=== PATIENT | male | born 1940 | race Caucasian/White ===

== ENCOUNTER 2022-06-22 16:01 | Observation (INO) ==
--- NOTE | 2022-06-22 16:20 | Emergency Department Note ---
Impression & Plan TIA (transient ischemic attack) ED Provider Note Provider: Kobi Yost MD DATE OF SERVICE: 06/22/2022 CHIEF COMPLAINT: Leg symptoms HISTORY OF PRESENT ILLNESS: Patient is a 82-year-old gentleman history of TIA received TNKase [facility] year at [facility] presenting today with onset around 1 PM of some dizziness difficulty with walking and some speech issues. Family and him report he had difficulty getting his words out. Had some issues with trying to use his right arm to eat earlier. No trauma reported. No significant headache or pain. Denies new numbness or tingling at this time. No headache or chest pain. No falls. No leg issues. REVIEW OF SYSTEMS: A total of 10 review of systems was obtained and negative except as stated above in the HPI. PAST MEDICAL HISTORY: As noted above MEDICATIONS: Reviewed home medications. SOCIAL HISTORY: PHYSICAL EXAM: GENERAL: alert and oriented in no acute distress on stretcher Head: normocephalic and atraumatic EYES: No injection, discharge or icterus. PERRL, EOMI. NECK: Trachea midline. Supple. ENT: Mucous membranes pink and moist. Pharynx without erythema or exudate. LUNGS: Airway patent. No retractions. Breath sounds clear with good air entry bilaterally. HEART: Regular rate and rhythm. No chest wall tenderness ABDOMEN: Soft and non-tender, without guarding or rebound. SKIN: Acyanotic, warm, dry, without rashes EXTREMITIES: Without swelling, tenderness or deformity NEUROLOGICAL: Initially some slight aphasia. This resolved on later reevaluation. No facial droop or slurred speech. Normal strength and tone in the extremities. Sensation to gross touch normal. Ambulatory. Tongue midline. No pronator drift. No leg drift. Some slight ataxia of both hands with [id number]. EK bpm normal sinus rhythm. No PVC or PAC. No acute ST segment elevation or depression with a QTC of 454. CONTINUOUS CARDIAC MONITORING: was ordered and showed a heart rate of 70s-80s bpm in normal sinus rhythm Patient's laboratory studies and imaging reviewed. Differential includes Infection, dehydration, metabolic abnormality, hypo/hyperglycemia, electrolyte disturbance, anemia, hypoxia, cardiac sources, intracerebral event, toxicologic, neurologic, as well as other pathologies. IMPRESSION/MEDICAL DECISION MAKING: Patient with complaint of some dizziness some aphasia and some according to right hand movements. Made stroke alert from triage. Evaluated quickly and CT. Discussed with him and family is on Eliquis anticoagulants thus tPA contraindicated. Symptoms have greatly improved by the time a reassessment of the room after imaging. CT imaging without evidence of any acute bleed or evidence of arterial occlusion on the CT angiograms. Patient blood work obtained. Symptoms are feeling improved. Somewhat focality of his to the right hand with the aphasia is somewhat concerning however for possible occult stroke or TIA. Blood work here with mild anemia no leukocytosis. No significant lectu re light abnormality. No evidence of liver dysfunction. EKG without significant abnormality. Doubt this is cardiac in nature. Discussed with patient and family at bedside. Unclear exactly what occurred but would recommend further evaluation given the transient nature of symptoms today with observation overnight. DIAGNOSIS: TIA DISPOSITION: Hospitalist will evaluate Patient was agreeable with this plan. Past Med/Surg History Medical History (Updated 06/22/22 @ 23:58 by Kobi Yost M.D.) Asthma CHF (congestive heart failure) HLD (hyperlipidemia) HTN (hypertension) KATY (obstructive sleep apnea) TIA (transient ischemic attack) Surgical History (Updated 06/22/22 @ 20:14 by AIDEE Corey) History of cholecystectomy Family History (Updated 06/22/22 @ 20:13 by AIDEE Corey) Grandfather (Maternal) Hypertension Diabetes Mother Hypertension Diabetes Colorectal cancer Stroke Father Hypertension Stroke Social History (Updated 06/22/22 @ 19:04 by AIDEE Corey) Smoking Status: Never smoker Hx Alcohol Use: No Hx Substance Use: No Preferred Language: Hungarian Communication Ability: Effective Color Specialist Required: No Beliefs That Will Affect Care: None marital status: Current Living Situation: Spouse current occupational status: retired current occupation: retired Feels Safe at Home: Yes Childhood Exposure to Second-Hand Smoke: No Assistive Devices: Glasses Allergies Allergies Allergy/AdvReac Type Severity Reaction Status Date / Time No Known Allergies Allergy Unverified 06/22/22 17:12 Home Meds Home Medications Medication Instructions Recorded Confirmed Lactobacillus acidophilus 10 10,000 mmu cells PO QAM 06/22/22 06/22/22 billion cell capsule (Probiotic) acetaminophen 325 mg tablet 650 mg PO QAM 06/22/22 06/22/22 (Tylenol) albuterol sulfate 90 mcg/actuation 2 puff inhalation QID PRN 06/22/22 06/22/22 aerosol inhaler (Ventolin HFA) Shortness Of Breath Or Wheezing amlodipine 2.5 mg tablet 2.5 mg PO QAM 06/22/22 06/22/22 apixaban 5 mg tablet (Eliquis) 5 mg PO BID 06/22/22 06/22/22 ascorbic acid (vitamin C) 1,000 mg 1 g PO QPM 06/22/22 06/22/22 tablet (Vitamin C) atorvastatin 80 mg tablet 80 mg PO HS 06/22/22 06/22/22 coQ10 (ubiquinol) 200 mg capsule 200 mg PO QAM 06/22/22 06/22/22 cyanocobalamin (vitamin B-12) 1,000 mcg PO DAILY 06/22/22 06/22/22 1,000 mcg tablet (Vitamin B-12) diphenhydramine 25 1 tab PO HS PRN Sleep 06/22/22 06/22/22 mg-acetaminophen 500 mg tablet (Tylenol PM Extra Strength) doxazosin 4 mg tablet 4 mg PO HS 06/22/22 06/22/22 finasteride 5 mg tablet 5 mg PO QPM 06/22/22 06/22/22 loratadine 10 mg tablet 10 mg PO HS 06/22/22 06/22/22 potassium chloride 10 mEq 10 meq PO QPM 06/22/22 06/22/22 capsule,extended release quinapril 40 mg tablet 40 mg PO QAM 06/22/22 06/22/22 saw palmetto 450 mg capsule 450 mg PO QAM 06/22/22 06/22/22 simethicone 80 mg chewable tablet 80 mg PO AMPM 06/22/22 06/22/22 (Gas Relief (simethicone)) torsemide 10 mg tablet 10 mg PO QAM 06/22/22 06/22/22 Results & Data (ED) Vital Signs Vital Signs - 24 hr 06/22/22 16:04 06/22/22 16:33 06/22/22 16:33 Temperature 36.8 C Temperature Source Temporal Artery Scan Pulse Rate 76 Pulse Rate [Apical] Respiratory Rate 18 Respiratory Effort / Characteristics Respiratory Depth Blood Pressure 158/90 H Blood Pressure [Right Arm] Blood Pressure Mean 112 Blood Pressure Mean [Right Arm] Blood Pressure Position [Right Arm] Pulse Oximetry 95 95 Oxygen Delivery Method Room Air Room Air Room Air Sepsis Recent Fever Within 48 Hours No Sepsis New/Unexplained Change in Mental Status No Sepsis Action Taken by Nursing No Action Required 06/22/22 16:34 06/22/22 16:34 06/22/22 18:01 Temperature Temperature Source Pulse Rate Pulse Rate [Apical] 73 69 Respiratory Rate 16 18 Respiratory Effort / Characteristics Non-Labored Respiratory Depth Normal Blood Pressure Blood Pressure [Right Arm] 144/79 H 156/91 H Blood Pressure Mean Blood Pressure Mean [Right Arm] 100 112 Blood Pressure Position [Right Arm] Lying Pulse Oximetry 96 95 93 Oxygen Delivery Method Room Air Room Air Room Air Sepsis Recent Fever Within 48 Hours Sepsis New/Unexplained Change in Mental Status Sepsis Action Taken by Nursing Laboratory Data Result diagrams: 06/22/22 16:27 06/22/22 16:27 Lab Results 06/22/22 06/22/22 06/22/22 Range/Units 16:24 16:27 16:27 WBC 6.59 (4.8-10.8) K/ul RBC 3.83 L (4.63-6.08) M/uL Hgb 11.8 L (14.0-18.0) g/dl POC Hgb (14.0-18.0) g/dl Hct 34.1 L (40.1-51.0) % POC Hct (42-52) % MCV 89.0 (80.0-100.0) fL MCH 30.8 (25.0-34.0) pg MCHC 34.6 (32.0-36.0) g/dL RDW Std Deviation 52.3 H (36.4-46.3) fL RDW Coeff of Teddy 16.0 H (11.5-14.5) % Plt Count 180 (130-400) K/uL MPV 10.6 (9.4-12.4) fL PT 11.4 (9.0-12.0) Seconds INR 1.1 (0.9-1.1) APTT 27.6 (21.0-31.0) Seconds PTT Ratio 1.0 POC Sodium (135-144) mmol/L Sodium (136-145) mmol/L POC Potassium (3.3-5.0) mmol/L Potassium (3.5-5.1) mmol/L POC Chloride (101-112) mmol/L Chloride (98-107) mmol/L Carbon Dioxide (21-32) mmol/L POC Total CO2 (24-31) mmol/L Anion Gap (3-11) POC Anion Gap (16-25) mmol/L POC BUN (7-18) mg/dl BUN (6-23) mg/dl Creatinine (0.6-1.4) mg/dl POC Creatinine (0.6-1.3) mg/dl Est Cr Clr Drug Dosing Est GFR ( Amer) ml/min Est GFR (Non-Af Amer) ml/min BUN/Creatinine Ratio (10-20) Glucose (70-99(Fasting)) mg/dl POC Glucose 115 H (70-99) mg/dl POC Glucose (other) (70-99) mg/dl Calcium (8.5-10.1) mg/dl POC Ioniz Calcium Zina (1.12-1.32) mmol/l Magnesium (1.7-2.4) mg/dl Total Bilirubin (0.2-1.0) mg/dl AST (13-39) U/L ALT (7-52) U/L Alkaline Phosphatase (34-104) U/L Troponin I High Sens (0-20) pg/ml Total Protein (6.0-8.3) gm/dl Albumin (3.4-5.0) gm/dl Globulin (2.5-4.0) gm/dl Albumin/Globulin Ratio (0.9-2) SARS-CoV-2, RNA, NAAT (NEGATIVE) 06/22/22 06/22/22 06/22/22 Range/Units 16:27 16:27 16:29 WBC (4.8-10.8) K/ul RBC (4.63-6.08) M/uL Hgb (14.0-18.0) g/dl POC Hgb 10.9 L (14.0-18.0) g/dl Hct (40.1-51.0) % POC Hct 32 L (42-52) % MCV (80.0-100.0) fL MCH (25.0-34.0) pg MCHC (32.0-36.0) g/dL RDW Std Deviation (36.4-46.3) fL RDW Coeff of Teddy (11.5-14.5) % Plt Count (130-400) K/uL MPV (9.4-12.4) fL PT (9.0-12.0) Seconds INR (0.9-1.1) APTT (21.0-31.0) Seconds PTT Ratio POC Sodium 141 (135-144) mmol/L Sodium 139 (136-145) mmol/L POC Potassium 3.5 (3.3-5.0) mmol/L Potassium 3.6 (3.5-5.1) mmol/L POC Chloride 104 (101-112) mmol/L Chloride 107 (98-107) mmol/L Carbon Dioxide 27 (21-32) mmol/L POC Total CO2 24 (24-31) mmol/L Anion Gap 5 (3-11) POC Anion Gap 16.0 (16-25) mmol/L POC BUN 18 (7-18) mg/dl BUN 17 (6-23) mg/dl Creatinine 0.95 (0.6-1.4) mg/dl POC Creatinine 0.9 (0.6-1.3) mg/dl Est Cr Clr Drug Dosing Not Reportable Est GFR ( Amer) 86.7 ml/min Est GFR (Non-Af Amer) 74.8 ml/min BUN/Creatinine Ratio 17.9 (10-20) Glucose 108 H (70-99(Fasting)) mg/dl POC Glucose (70-99) mg/dl POC Glucose (other) 109 H (70-99) mg/dl Calcium 8.3 L (8.5-10.1) mg/dl POC Ioniz Calcium Zina 1.11 L (1.12-1.32) mmol/l Magnesium 2.1 (1.7-2.4) mg/dl Total Bilirubin 0.5 (0.2-1.0) mg/dl AST 23 (13-39) U/L ALT 28 (7-52) U/L Alkaline Phosphatase 78 (34-104) U/L Troponin I High Sens 4.0 (0-20) pg/ml Total Protein 5.7 L (6.0-8.3) gm/dl Albumin 3.8 (3.4-5.0) gm/dl Globulin 1.9 L (2.5-4.0) gm/dl Albumin/Globulin Ratio 2.0 (0.9-2) SARS-CoV-2, RNA, NAAT (NEGATIVE) 06/22/22 Range/Units 17:21 WBC (4.8-10.8) K/ul RBC (4.63-6.08) M/uL Hgb (14.0-18.0) g/dl POC Hgb (14.0-18.0) g/dl Hct (40.1-51.0) % POC Hct (42-52) % MCV (80.0-100.0) fL MCH (25.0-34.0) pg MCHC (32.0-36.0) g/dL RDW Std Deviation (36.4-46.3) fL RDW Coeff of Teddy (11.5-14.5) % Plt Count (130-400) K/uL MPV (9.4-12.4) fL PT (9.0-12.0) Seconds INR (0.9-1.1) APTT (21.0-31.0) Seconds PTT Ratio POC Sodium (135-144) mmol/L Sodium (136-145) mmol/L POC Potassium (3.3-5.0) mmol/L Potassium (3.5-5.1) mmol/L POC Chloride (101-112) mmol/L Chloride (98-107) mmol/L Carbon Dioxide (21-32) mmol/L POC Total CO2 (24-31) mmol/L Anion Gap (3-11) POC Anion Gap (16-25) mmol/L POC BUN (7-18) mg/dl BUN (6-23) mg/dl Creatinine (0.6-1.4) mg/dl POC Creatinine (0.6-1.3) mg/dl Est Cr Clr Drug Dosing Est GFR ( Amer) ml/min Est GFR (Non-Af Amer) ml/min BUN/Creatinine Ratio (10-20) Glucose (70-99(Fasting)) mg/dl POC Glucose (70-99) mg/dl POC Glucose (other) (70-99) mg/dl Calcium (8.5-10.1) mg/dl POC Ioniz Calcium Zina (1.12-1.32) mmol/l Magnesium (1.7-2.4) mg/dl Total Bilirubin (0.2-1.0) mg/dl AST (13-39) U/L ALT (7-52) U/L Alkaline Phosphatase (34-104) U/L Troponin I High Sens (0-20) pg/ml Total Protein (6.0-8.3) gm/dl Albumin (3.4-5.0) gm/dl Globulin (2.5-4.0) gm/dl Albumin/Globulin Ratio (0.9-2) SARS-CoV-2, RNA, NAAT NEGATIVE (NEGATIVE) Administered Medications Apixaban (Apixaban 5 Mg Tablet) 5 mg PO BID MADDY Stop: 07/22/22 20:59 Last Admin: 06/22/22 22:21 Dose: 5 mg Documented By: JANIE Ascorbic Acid (Ascorbic Acid 500 Mg Tab) 1,000 mg PO QPM MADDY Stop: 07/22/22 20:59 Last Admin: 06/22/22 22:20 Dose: 1,000 mg Documented By: JANIE Atorvastatin Calcium (Atorvastatin 40 Mg Tab) 80 mg PO HS MADDY Stop: 07/22/22 20:59 Last Admin: 06/22/22 22:20 Dose: 80 mg Documented By: JANIE Doxazosin Mesylate (Doxazosin Mesylate 4 Mg Tab) 4 mg PO HS MADDY Stop: 07/22/22 20:59 Last Admin: 06/22/22 22:21 Dose: 4 mg Documented By: JANIE Finasteride (Finasteride 5 Mg Tab) 5 mg PO QPM MADDY Stop: 07/22/22 20:59 Last Admin: 06/22/22 22:22 Dose: 5 mg Documented By: JANIE Loratadine (Loratadine 10 Mg Tab) 10 mg PO HS MADDY Stop: 07/22/22 20:59 Last Admin: 06/22/22 22:22 Dose: 10 mg Documented By: JANIE Potassium Chloride (Potassium Chloride 10 Meq Tabcr) 10 meq PO 1700 MADDY Stop: 07/22/22 20:59 Last Admin: 06/22/22 22:22 Dose: 10 meq Documented By: JANIE Simethicone (Simethicone 80 Mg Chew) 80 mg PO BID MADDY Stop: 07/22/22 20:59 Last Admin: 06/22/22 22:20 Dose: 80 mg Documented By: JANIE Discontinued Medications Clopidogrel Bisulfate (Clopidogrel Bisulfate 75 Mg Tab) 75 mg PO NOW ONE Stop: 10/16/22 18:56 Last Admin: 06/22/22 19:58 Dose: 75 mg Documented By: ELENA Gadobutrol (Gadobutrol 65ml Vial) 8 ml IV ONCE ONE Stop: 06/22/22 23:32 Last Admin: 06/22/22 23:32 Dose: 8 ml Documented By: ARASH Ioversol (Optiray 320 500ml) 107 ml IV ONCE ONE Stop: 06/22/22 16:33 Last Admin: 06/22/22 16:32 Dose: 107 ml Documented By: ANNEMARIE Imaging Data Radiologist's Impression: Head CT 06/22/22 16:08 CT angio neck with con, CT angio head w con, CT head/brain wo con CLINICAL HISTORY: dizzy, aphasia TECHNIQUE: Automated Data Collection CT angiography of the head and neck was performed following intravenous administration of iodinated contrast. Coronal and sagittal MIPS were obtained from the axial data set and were submitted for review. Automated dose lowering techniques and/or adjustment according to patient size were utilized for this examination. All measurements were calculated based on NASCET criteria. CT DOSE: 627.54 mGy.cm (accession [id number]), 691.05 mGy.cm (accession [id number]) Comparison: None available at the time of this dictation. FINDINGS: CT head: There is no acute intracranial hemorrhage or evidence of acute territorial infarction. No shift of the midline structures, mass effect, or extra-axial abnormalities are shown. 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 Lungs and soft tissues are unremarkable. CTA Neck: The left common carotid artery shares common origin with the innominate artery. There is no significant atherosclerotic plaque in the aortic arch or the origins of the innominate, left common carotid, and left subclavian arteries. The common carotid, external carotid, cervical segments of the internal carotid arteries, and the cervical segments of the vertebral arteries are patent without hemodynamically significant stenosis. The vertebral arteries are codominant. CTA Head: The anterior and posterior cerebral circulations are patent. No hemodynamically significant stenosis, aneurysm, dissection, or arteriovenous malformation is shown. Atherosclerotic disease is noted. IMPRESSION: 1. No acute intracranial hemorrhage, evidence of acute territorial infarction, or other acute intracranial disease process. 2. No occlusion, hemodynamically significant stenosis, or dissection in the major cervical arteries. 3. No occlusion, hemodynamically significant stenosis, aneurysm, dissection, or arteriovenous malformation in the major intracranial arteries. Assessment of stenosis of the internal carotid arteries is based on NASCET criteria. ACT 112: Negative or not required by law. Electronically signed by: Derrick Minor M.D. 06/22/2022 4:52 PM Head CTA 06/22/22 16:14 CT angio neck with con, CT angio head w con, CT head/brain wo con CLINICAL HISTORY: dizzy, aphasia TECHNIQUE: Automated Data Collection CT angiography of the head and neck was performed following intravenous administration of iodinated contrast. Coronal and sagittal MIPS were obtained from the axial data set and were submitted for review. Automated dose lowering techniques and/or adjustment according to patient size were utilized for this examination. All measurements were calculated based on NASCET criteria. CT DOSE: 627.54 mGy.cm (accession [id number]), 691.05 mGy.cm (accession [id number]) Comparison: None available at the time of this dictation. FINDINGS: CT head: There is no acute intracranial hemorrhage or evidence of acute territorial infarction. No shift of the midline structures, mass effect, or extra-axial abnormalities are shown. 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 Lungs and soft tissues are unremarkable. CTA Neck: The left common carotid artery shares common origin with the inn ominate artery. There is no significant atherosclerotic plaque in the aortic arch or the origins of the innominate, left common carotid, and left subclavian arteries. The common carotid, external carotid, cervical segments of the internal carotid arteries, and the cervical segments of the vertebral arteries are patent without hemodynamically significant stenosis. The vertebral arteries are codominant. CTA Head: The anterior and posterior cerebral circulations are patent. No hemodynamically significant stenosis, aneurysm, dissection, or arteriovenous malformation is shown. Atherosclerotic disease is noted. IMPRESSION: 1. No acute intracranial hemorrhage, evidence of acute territorial infarction, or other acute intracranial disease process. 2. No occlusion, hemodynamically significant stenosis, or dissection in the major cervical arteries. 3. No occlusion, hemodynamically significant stenosis, aneurysm, dissection, or arteriovenous malformation in the major intracranial arteries. Assessment of stenosis of the internal carotid arteries is based on NASCET criteria. ACT 112: Negative or not required by law. Electronically signed by: Derrick Minor M.D. 06/22/2022 4:52 PM Neck CTA 06/22/22 16:14 CT angio neck with con, CT angio head w con, CT head/brain wo con CLINICAL HISTORY: dizzy, aphasia TECHNIQUE: Automated Data Collection CT angiography of the head and neck was performed following intravenous administration of iodinated contrast. Coronal and sagittal MIPS were obtained from the axial data set and were submitted for review. Automated dose lowering techniques and/or adjustment according to patient size were utilized for this examination. All measurements were calculated based on NASCET criteria. CT DOSE: 627.54 mGy.cm (accession [id number]), 691.05 mGy.cm (accession [id number]) Comparison: None available at the time of this dictation. FINDINGS: CT head: There is no acute intracranial hemorrhage or evidence of acute territor ial infarction. No shift of the midline structures, mass effect, or extra-axial abnormalities are shown. 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 Lungs and soft tissues are unremarkable. CTA Neck: The left common carotid artery shares common origin with the innominate artery. There is no significant atherosclerotic plaque in the aortic arch or the origins of the innominate, left common carotid, and left subclavian arteries. The common carotid, external carotid, cervical segments of the internal carotid arteries, and the cervical segments of the vertebral arteries are patent without hemodynamically significant stenosis. The vertebral arteries are codominant. CTA Head: The anterior and posterior cerebral circulations are patent. No hemodynamically significant stenosis, aneurysm, dissection, or arteriovenous malformation is shown. Atherosclerotic disease is noted. IMPRESSION: 1. No acute intracranial hemorrhage, evidence of acute territorial infarction, or other acute intracranial disease process. 2. No occlusion, hemodynamically significant stenosis, or dissection in the major cervical arteries. 3. No occlusion, hemodynamically significant stenosis, aneurysm, dissection, or arteriovenous malformation in the major intracranial arteries. Assessment of stenosis of the internal carotid arteries is based on NASCET criteria. ACT 112: Negative or not required by law. Electronically signed by: Derrick Minor M.D. 06/22/2022 4:52 PM Chest X-Ray 06/22/22 17:08 XR chest 1V portable CLINICAL HISTORY: dizzy TECHNIQUE: Single frontal radiograph of the chest was obtained. Comparison: None available at the time of this dictation. FINDINGS: No lines and tubes are seen. Cardiac silhouette is top normal in size. The lungs are clear. No evidence of pleural effusion or pneumothorax. IMPRESSION: No acute chest disease. ACT 112: Negative or not required by law. Electronically signed by: Derrick Minor M.D. 06/22/2022 5:25 PM Discharge Plan Visit Data Chief Complaint: Neuro Symptoms/Deficit Stated Complaint: TROUBLE WALKING AND TALKING, DIZZY, WEAKNESS ED Provider: Kobi Yost Discharge Problem: TIA (transient ischemic attack) Patient Disposition: Admitted As Inpatient Discharge Instructions Interventions: ED Discharge Assessment Last Done: 06/22/22 20:55
[2022-06-22] MEDS ORDERED: OPTIRAY 320 500ml IV ONE (16:32)
[2022-06-22 16:41] LABS: Hematocrit (blood only) 34.1 % (40.1-51.0); Hemoglobin 11.8 g/dl (14.0-18.0); Mean Corpuscular Hemoglobin 30.8 pg (25.0-34.0); Mean Corpuscular Hgb Conc 34.6 g/dL (32.0-36.0); Mean Platelet Volume 10.6 fL (9.4-12.4); Platelet Count 180 K/uL (130-400); RDW Standard Deviation 52.3 fL (36.4-46.3); Red Blood Count 3.83 M/uL (4.63-6.08); White Blood Count 6.59 K/ul (4.8-10.8)
[2022-06-22 16:43] LABS: iSTAT Creatinine 0.9 mg/dl (0.6-1.3); iSTAT Hemoglobin 10.9 g/dl (14.0-18.0); iSTAT Ionized Calcium 1.11 mmol/l (1.12-1.32); iSTAT Potassium 3.5 mmol/L (3.3-5.0)
--- NOTE | 2022-06-22 16:55 | CT Scan Report ---
CT angio neck with con, CT angio head w con, CT head/brain wo con CLINICAL HISTORY: dizzy, aphasia TECHNIQUE: Automated Data Collection CT angiography of the head and neck was performed following intr avenous administration of iodinated contrast. Coronal and sagittal MIPS were obtained from the axial data set and were submitted for review. Automated dose lowering techniques and/or adjustment accordi ng to patient size were utilized for this examination. All measurements were calculated based on NASC ET criteria. CT DOSE: 627.54 mGy.cm (accession [id number]), 691.05 mGy.cm (accession [id number]) Comparison: None available at the time of this dictation. FINDINGS: CT head: There is no acute intracranial hemorrhage or evidence of acute territorial infarction. No sh ift of the midline structures, mass effect, or extra-axial abnormalities are shown. Likely old infarc t in the periventricular white matter on the right. Lungs and soft tissues are unremarkable. CTA Neck: The left common carotid artery shares common origin with the innominate artery. There is n o significant atherosclerotic plaque in the aortic arch or the origins of the innominate, left common carotid, and left subclavian arteries. The common carotid, external carotid, cervical segments of the internal carotid arteries, and the cervical segments of the vertebral arteries are patent without hemodynamically significant stenosis. The vertebral arteries are codominant. CTA Head: The anterior and posterior cerebral circulations are patent. No hemodynamically significan t stenosis, aneurysm, dissection, or arteriovenous malformation is shown. Atherosclerotic disease is noted. IMPRESSION: 1. No acute intracranial hemorrhage, evidence of acute territorial infarction, or other acute intrac ranial disease process. 2. No occlusion, hemodynamically significant stenosis, or dissection in the major cervical arteries. 3. No occlusion, hemodynamically significant stenosis, aneurysm, dissection, or arteriovenous malfor mation in the major intracranial arteries. Assessment of stenosis of the internal carotid arteries is based on NASCET criteria. ACT 112: Negative or not required by law. Electronically signed by: Derrick Minor M.D. 06/22/2022 4:52 PM
[2022-06-22 16:57] LABS: INR 1.1 (0.9-1.1); Partial Thromboplastin Time 27.6 Seconds (21.0-31.0); Prothrombin Time 11.4 Seconds (9.0-12.0)
[2022-06-22 16:59] LABS: Alanine Aminotransferase 28 U/L (7-52); Albumin Level 3.8 gm/dl (3.4-5.0); Alkaline Phosphatase 78 U/L (34-104); Anion Gap 5 (3-11); Aspartate Aminotransferase 23 U/L (13-39); BUN Creatinine Ratio 17.9 (10-20); Bilirubin,Total 0.5 mg/dl (0.2-1.0); Blood Urea Nitrogen 17 mg/dl (6-23); Calcium 8.3 mg/dl (8.5-10.1); Carbon Dioxide 27 mmol/L (21-32); Chloride 107 mmol/L (98-107); Est GFR (African American) 86.7 ml/min; Est GFR (Non-African American) 74.8 ml/min; Globulin 1.9 gm/dl (2.5-4.0); Glucose 108 mg/dl (70-99(Fasting)); Magnesium 2.1 mg/dl (1.7-2.4); Potassium 3.6 mmol/L (3.5-5.1); Sodium 139 mmol/L (136-145); Total Protein 5.7 gm/dl (6.0-8.3)
--- NOTE | 2022-06-22 17:26 | XRay Report ---
XR chest 1V portable CLINICAL HISTORY: dizzy TECHNIQUE: Single frontal radiograph of the chest was obtained. Comparison: None available at the time of this dictation. FINDINGS: No lines and tubes are seen. Cardiac silhouette is top normal in size. The lungs are clear. No eviden ce of pleural effusion or pneumothorax. IMPRESSION: No acute chest disease. ACT 112: Negative or not required by law. Electronically signed by: Derrick Minor M.D. 06/22/2022 5:25 PM
--- NOTE | 2022-06-22 18:23 | History & Physical Report ---
Date of Service June 22, 2022 Assessment & Plan (1) TIA (transient ischemic attack): (2) HTN (hypertension): (3) HLD (hyperlipidemia): (4) CHF (congestive heart failure): (5) Asthma: (6) KATY (obstructive sleep apnea): Plan 82-year-old M that presented to the hospital with dizziness, dysarthria, difficulty with the right hand fine motor skills. Some slurred words but did not report aphasia. Head CT was obtained and negative and his symptoms seem to have resolved. PMH includes: HLD, atrial fibrillation, TIA, HTN, CHF. He primarily is followed in the [facility] system with Dr. Rice. MRI and ECHO ordered. Patient will be started on standard dosing antiplatelet therapy and will await further instruction from neurology. DNR/DNI. TIA: Dizziness and dysarthria with difficulty with right hand fine motor movement on admission Head CT negative and symptoms have resolved No stroke alert teleconference held due to time of symptom onset and patient on Eliquis TIA symptoms in February 2021 status post TNKase administration and Pia. Patient on high-dose antilipid agent; continue NIH: 1 as he still has slight dysarthria Stroke order set without thrombolytics placed; neuro consult placed Will start antiplatelet therapy with Plavix 75 mg once and allow neurology input ok for meds if clears dysphagia screen. PT/OT. Will obtain brain MRI CHF: HTN: Normotensive in the ED Takes amlodipine and doxazosin; continue Will check BNP HLD: Takes high-dose atorvastatin 80 mg Check lipid panel in a.m. and trend as outpatient Asthma: KATY: Albuterol for short acting relief PRN; continue Uses CPAP QHS; will use CPAP here. His is one hour away as he is out of town. Disposition: PCP: Dr. Rice with [facility] Code: DNR/DNI Point of Contact: son, Rodrigo I personally was able to review all current laboratory work and diagnostic images obtained in the ED. Additionally, I was able to review the patients past medication reconciliation and history with direct visualization in the patients chart. This patient was seen in collaboration with Dr. [place]. History of Present Illness Chief Complaint: stroke like symptoms Primary Care Provider: Dr. Rice with [facility] is an 82-year-old male that presented to the hospital today with his Paula and his son Rodrigo after experiencing dizziness, dysarthria, difficulty with the right hand fine motor skills at [facility]. He was in [facility] this morning when his symptoms began just before 1 PM. He is visiting his son from the [place] area. His [id number] is a nurse here at [facility] and she was able to take his blood pressure which was normal at the time. He reports that he was dizzy getting out of his car and while at lunch he picked up to [place] at 1 time and had a hard time putting down one of the [place]. He felt that he had some slurred words but did not report aphasia. A head CT was obtained and negative and his symptoms have seemed to resolve since presenting to the ED. The patient has a history of TIAs and received TN kinase last year and was put on Eliquis for chronic management thereafter. Additional past medical history includes atrial fibrillation, hyperlipidemia, hypertension, KATY (CPAP at home) CHF. He primarily is followed in the [facility] system with Dr. Rice. He does have a home builder that he sees outpatient. Mr. Freire denies current dizziness, chest pain, palpitations, visual changes, shortness of breath, cough, nausea, vomiting, diarrhea, recent falls or trauma, or aphasia. On examination, the patient is awake alert oriented x4 and is able to hold a meaningful conversation with myself, his , and his son. He is answering all questions appropriately and appears to be back to baseline from a speech perspective per himself and his family. The patient does report a trace headache and generalized weakness from the events that transpired today. Lengthy conversation held with patient and his family and they were receptive to further diagnostic imaging including an MRI and an echocardiogram. Patient will be started on standard dosing antiplatelet therapy and will await further instruction from neurology. Patient will be admitted to the [facility] service for further evaluation and management. Please see A/P for further details. Allergies Allergy/AdvReac Type Severity Reaction Status Date / Time No Known Allergies Allergy Unverified 06/22/22 17:12 Home Medications Medication Instructions Recorded Confirmed Type Lactobacillus acidophilus 10 10,000 mmu cells PO QAM 06/22/22 06/22/22 History billion cell capsule (Probiotic) acetaminophen 325 mg tablet 650 mg PO QAM 06/22/22 06/22/22 History (Tylenol) albuterol sulfate 90 mcg/actuation 2 puff inhalation QID PRN 06/22/22 06/22/22 History aerosol inhaler (Ventolin HFA) Shortness Of Breath Or Wheezing amlodipine 2.5 mg tablet 2.5 mg PO QAM 06/22/22 06/22/22 History apixaban 5 mg tablet (Eliquis) 5 mg PO BID 06/22/22 06/22/22 History ascorbic acid (vitamin C) 1,000 mg 1 g PO QPM 06/22/22 06/22/22 History tablet (Vitamin C) atorvastatin 80 mg tablet 80 mg PO HS 06/22/22 06/22/22 History coQ10 (ubiquinol) 200 mg capsule 200 mg PO QAM 06/22/22 06/22/22 History cyanocobalamin (vitamin B-12) 1,000 mcg PO DAILY 06/22/22 06/22/22 History 1,000 mcg tablet (Vitamin B-12) diphenhydramine 25 1 tab PO HS PRN Sleep 06/22/22 06/22/22 History mg-acetaminophen 500 mg tablet (Tylenol PM Extra Strength) doxazosin 4 mg tablet 4 mg PO HS 06/22/22 06/22/22 History finasteride 5 mg tablet 5 mg PO QPM 06/22/22 06/22/22 History loratadine 10 mg tablet 10 mg PO HS 06/22/22 06/22/22 History potassium chloride 10 mEq 10 meq PO QPM 06/22/22 06/22/22 History capsule,extended release quinapril 40 mg tablet 40 mg PO QAM 06/22/22 06/22/22 History saw palmetto 450 mg capsule 450 mg PO QAM 06/22/22 06/22/22 History simethicone 80 mg chewable tablet 80 mg PO AMPM 06/22/22 06/22/22 History (Gas Relief (simethicone)) torsemide 10 mg tablet 10 mg PO QAM 06/22/22 06/22/22 History Past Med/Surg History Medical History (Updated 06/22/22 @ 20:11 by AIDEE Corey) Asthma CHF (congestive heart failure) HLD (hyperlipidemia) HTN (hypertension) KATY (obstructive sleep apnea) TIA (transient ischemic attack) Surgical History (Updated 06/22/22 @ 20:14 by AIDEE Corey) History of cholecystectomy Family History (Updated 06/22/22 @ 20:13 by AIDEE Corey) Grandfather (Maternal) Hypertension Diabetes Mother Hypertension Diabetes Colorectal cancer Stroke Father Hypertension Stroke Social History (Updated 06/22/22 @ 19:04 by AIDEE Corey) Smoking Status: Never smoker Hx Alcohol Use: No Hx Substance Use: No Preferred Language: Guamanian Communication Ability: Effective marital status: Current Living Situation: Spouse current occupational status: retired current occupation: retired Feels Safe at Home: Yes Childhood Exposure to Second-Hand Smoke: No Review of Systems Review of Systems: Neuro: (-) Falls, trauma, slurred speech HEENT: (-) HOBBS, dizziness, dysphagia, visual or auditory changes CV: (-) CP, palpitations, swelling Resp: (-) SOB GI: (-) appetite changes, N/V/D, bowel changes : (-) urinary changes Skin: (-) rashes Psych: (-) anxiety, depression Physical Exam Physical Exam: Neuro: AAOx4, PERRLA, no aphagia, memory changes, CNII-XII grossly intact (-) aphagia HEENT: head normocephalic, moist mucus membranes CV: S1/S2, (-) M/G/R, (-) edema, cap refill < 3 seconds Resp: Lungs CTA in all edwards. On RA GI: Abdomen S/NT/ND, Ax4 bowel sounds, (-) CVA tenderness Musculoskeletal: 5/5 B/L UE strength, 5/5 B/L LE strength. No gait disturbance Skin: (-) rashes , (-) erythema. Psych: euthymic mood Results & Data Results & Data ([facility]) Vital Signs (Past 12 Hours) Vital Signs Temp Pulse Pulse Resp BP BP Pulse Ox 06/22/22 18:01 69 18 156/91 H 93 06/22/22 16:34 73 16 144/79 H 95 06/22/22 16:34 96 06/22/22 16:33 06/22/22 16:33 95 06/22/22 16:04 36.8 C 76 18 158/90 H 95 O2 Del Method 06/22/22 18:01 Room Air 06/22/22 16:34 Room Air 06/22/22 16:34 Room Air 06/22/22 16:33 Room Air 06/22/22 16:33 Room Air 06/22/22 16:04 Room Air Laboratory Results Short CBC 06/22/22 Range/Units 16:27 WBC 6.59 (4.8-10.8) K/ul Hgb 11.8 L (14.0-18.0) g/dl Hct 34.1 L (40.1-51.0) % Plt Count 180 (130-400) K/uL BMP 06/22/22 16:27 Sodium 139 Potassium 3.6 Chloride 107 Carbon Dioxide 27 BUN 17 Creatinine 0.95 Glucose 108 H Calcium 8.3 L Liver Function 06/22/22 Range/Units 16:27 Total Bilirubin 0.5 (0.2-1.0) mg/dl AST 23 (13-39) U/L ALT 28 (7-52) U/L Alkaline Phosphatase 78 (34-104) U/L Albumin 3.8 (3.4-5.0) gm/dl Diagnostic Findings Head CT 06/22/22 16:08 CT angio neck with con, CT angio head w con, CT head/brain wo con CLINICAL HISTORY: dizzy, aphasia TECHNIQUE: Automated Data Collection CT angiography of the head and neck was performed following intravenous administration of iodinated contrast. Coronal and sagittal MIPS were obtained from the axial data set and were submitted for review. Automated dose lowering techniques and/or adjustment according to patient size were utilized for this examination. All measurements were calculated based on NASCET criteria. CT DOSE: 627.54 mGy.cm (accession [id number]), 691.05 mGy.cm (accession [id number]) Comparison: None available at the time of this dictation. FINDINGS: CT head: There is no acute intracranial hemorrhage or evidence of acute te rritorial infarction. No shift of the midline structures, mass effect, or extra- axial abnormalities are shown. 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 Lungs and soft tissues are unremarkable. CTA Neck: The left common carotid artery shares common origin with the innominate artery. There is no significant atherosclerotic plaque in the aortic arch or the origins of the innominate, left common carotid, and left subclavian arteries. The common carotid, external carotid, cervical segments of the internal carotid arteries, and the cervical segments of the vertebral arteries are patent without hemodynamically significant stenosis. The vertebral arteries are codominant. CTA Head: The anterior and posterior cerebral circulations are patent. No hemodynamically significant stenosis, aneurysm, dissection, or arteriovenous malformation is shown. Atherosclerotic disease is noted. IMPRESSION: 1. No acute intracranial hemorrhage, evidence of acute territorial infarction, or other acute intracranial disease process. 2. No occlusion, hemodynamically significant stenosis, or dissection in the major cervical arteries. 3. No occlusion, hemodynamically significant stenosis, aneurysm, dissection, or arteriovenous malformation in the major intracranial arteries. Assessment of stenosis of the internal carotid arteries is based on NASCET criteria. ACT 112: Negative or not required by law. Electronically signed by: Derrick Minor M.D. 06/22/2022 4:52 PM Head CTA 06/22/22 16:14 CT angio neck with con, CT angio head w con, CT head/brain wo con CLINICAL HISTORY: dizzy, aphasia TECHNIQUE: Automated Data Collection CT angiography of the head and neck was performed following intravenous administration of iodinated contrast. Coronal and sagittal MIPS were obtained from the axial data set and were submitted for review. Automated dose lowering techniques and/or adjustment according to patient size were utilized for this examination. All measurements were calculated based on NASCET criteria. CT DOSE: 627.54 mGy.cm (accession [id number]), 691.05 mGy.cm (accession [id number]) Comparison: None available at the time of this dictation. FINDINGS: CT head: There is no acute intracranial hemorrhage or evidence of acute territorial infarction. No shift of the midline structures, mass effect, or ext ra-axial abnormalities are shown. 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 Lungs and soft tissues are unremarkable. CTA Neck: The left common carotid artery shares common origin with the innominate artery. There is no significant atherosclerotic plaque in the aortic arch or the origins of the innominate, left common carotid, and left subclavian arteries. The common carotid, external carotid, cervical segments of the internal carotid arteries, and the cervical segments of the vertebral arteries are patent without hemodynamically significant stenosis. The vertebral arteries are codominant. CTA Head: The anterior and posterior cerebral circulations are patent. No hemodynamically significant stenosis, aneurysm, dissection, or arteriovenous malformation is shown. Atherosclerotic disease is noted. IMPRESSION: 1. No acute intracranial hemorrhage, evidence of acute territorial infarction, or other acute intracranial disease process. 2. No occlusion, hemodynamically significant stenosis, or dissection in the major cervical arteries. 3. No occlusion, hemodynamically significant stenosis, aneurysm, dissection, or arteriovenous malformation in the major intracranial arteries. Assessment of stenosis of the internal carotid arteries is based on NASCET criteria. ACT 112: Negative or not required by law. Electronically signed by: Derrick Minor M.D. 06/22/2022 4:52 PM Neck CTA 06/22/22 16:14 CT angio neck with con, CT angio head w con, CT head/brain wo con CLINICAL HISTORY: dizzy, aphasia TECHNIQUE: Automated Data Collection CT angiography of the head and neck was performed following intravenous administration of iodinated contrast. Coronal and sagittal MIPS were obtained from the axial data set and were submitted for review. Automated dose lowering techniques and/or adjustment according to patient size were utilized for this examination. All measurements were calculated based on NASCET criteria. CT DOSE: 627.54 mGy.cm (accession [id number]), 691.05 mGy.cm (accession [id number]) Comparison: None available at the time of this dictation. FINDINGS: CT head: There is no acute intracranial hemorrhage or evidence of acute territorial infarction. No shift of the midline structures, mass effect, or extra-axial abnormalities are shown. Likely old infarct in the periventricular w titi matter on the right. Lungs and soft tissues are unremarkable. CTA Neck: The left common carotid artery shares common origin with the innominate artery. There is no significant atherosclerotic plaque in the aortic arch or the origins of the innominate, left common carotid, and left subclavian arteries. The common carotid, external carotid, cervical segments of the internal carotid arteries, and the cervical segments of the vertebral arteries are patent without hemodynamically significant stenosis. The vertebral arteries are codominant. CTA Head: The anterior and posterior cerebral circulations are patent. No hemodynamically significant stenosis, aneurysm, dissection, or arteriovenous malformation is shown. Atherosclerotic disease is noted. IMPRESSION: 1. No acute intracranial hemorrhage, evidence of acute territorial infarction, or other acute intracranial disease process. 2. No occlusion, hemodynamically significant stenosis, or dissection in the major cervical arteries. 3. No occlusion, hemodynamically significant stenosis, aneurysm, dissection, or arteriovenous malformation in the major intracranial arteries. Assessment of stenosis of the internal carotid arteries is based on NASCET criteria. ACT 112: Negative or not required by law. Electronically signed by: Derrick Minor M.D. 06/22/2022 4:52 PM Chest X-Ray 06/22/22 17:08 XR chest 1V portable CLINICAL HISTORY: dizzy TECHNIQUE: Single frontal radiograph of the chest was obtained. Comparison: None available at the time of this dictation. FINDINGS: No lines and tubes are seen. Cardiac silhouette is top normal in size. The lungs are clear. No evidence of pleural effusion or pneumothorax. IMPRESSION: No acute chest disease. ACT 112: Negative or not required by law. Electronically signed by: Derrick Minor M.D. 06/22/2022 5:25 PM ECG Additional Comments: NSR HR 79 DOUGLAS 188 ms QRS 88ms QTc 454 Code Status & VTE Plan Code Status DNR/DNI in the event of cardiac or respiratory arrest VTE Prophylaxis Plan VTE Prophylaxis will be ordered: Yes Supervising Physician Co-Signing Physician Notes Seen and examined at bedside. Patient is an 82 year old man with history of CVA/TIA 2020, afib on apixavan presented with dizziness, dysarthria, coordination issues with right hand and unsteady gait that self resolved at time of evaluation in the ED. Patient at baseline at time of exam, CTA head and neck negative for occlusion or significant stenosis. Will continue apixaban, start plavix 75md daily, continue atorvastatin 80mg daily. Bedside swallow screen. Will pursue MRI brain, TTE.. Neurology consult. Case discussed with AIDEE Murphy.
[2022-06-22] MEDS ORDERED: CLOPIDOGREL BISULFATE 75 MG TAB PO ONE (18:55)
[2022-06-22] MEDS ORDERED: ATORVASTATIN 40 MG TAB PO SCH (21:00)
[2022-06-22] MEDS ORDERED: PHARMACIST DISCHARGE MED REC CONSULT PRN (21:00)
[2022-06-22] MEDS ORDERED: POTASSIUM CHLORIDE 10 MEQ TABCR PO SCH (21:00)
[2022-06-22] MEDS ORDERED: DOXAZosin MESYLATE 4 MG TAB PO SCH (21:00)
[2022-06-22] MEDS ORDERED: LORATADINE 10 MG TAB PO SCH (21:00)
[2022-06-22] MEDS ORDERED: ALBUTEROL HFA 8 GM INHALER INH PRN (21:00)
[2022-06-22] MEDS ORDERED: FINASTERIDE 5 MG TAB PO SCH (21:00)
[2022-06-22] MEDS ORDERED: ASCORBIC ACID 500 MG TAB PO SCH (21:00)
[2022-06-22] MEDS ORDERED: diphenhydrAMINE Capsule 25 MG CAP PO PRN (21:19)
[2022-06-22] MEDS ORDERED: ACETAMINOPHEN 500 MG TAB PO PRN (21:21)
[2022-06-22 21:56] LABS: Chol HDL Ratio 2.5 (0-5)
[2022-06-22] MEDS: SIMETHICONE 80 MG CHEW PO SCH (22:20)
[2022-06-22] MEDS: APIXABAN 5 MG TABLET PO SCH (22:21)
[2022-06-22] MEDS ORDERED: GADOBUTROL 65ML VIAL IV ONE (23:31)
[2022-06-23 02:11] LABS: Basophils # (auto) 0.08 K/uL (0-0.2); Eosinophils # (auto) 0.25 K/uL (0-0.50); Hematocrit (blood only) 34.1 % (40.1-51.0); Hemoglobin 11.8 g/dl (14.0-18.0); Immature Granulocytes # (auto) 0.02 K/uL (0.00-0.02); Immature Granulocytes % (auto) 0.2 %; Lymphocytes # (auto) 1.79 K/uL (1.2-3.4); Lymphocytes % (auto) 21.6 %; Mean Corpuscular Hemoglobin 30.6 pg (25.0-34.0); Mean Corpuscular Hgb Conc 34.6 g/dL (32.0-36.0); Mean Corpuscular Volume 88.6 fL (80.0-100.0); Mean Platelet Volume 10.6 fL (9.4-12.4); Monocytes # (auto) 0.69 K/uL (0.24-0.82); Monocytes % (auto) 8.3 %; Neutrophils # (auto) 5.44 K/uL (1.4-6.5); Neutrophils % (auto) 65.9 %; Platelet Count 175 K/uL (130-400); RDW Coefficient of Variation 16.2 % (11.5-14.5); RDW Standard Deviation 52.7 fL (36.4-46.3); Red Blood Count 3.85 M/uL (4.63-6.08); White Blood Count 8.27 K/ul (4.8-10.8)
[2022-06-23 02:29] LABS: BUN Creatinine Ratio 18.7 (10-20); Calcium 8.4 mg/dl (8.5-10.1); Creatinine Clr Calc Pharmacy 63.2 ml/min; Est GFR (African American) 91.3 ml/min; Est GFR (Non-African American) 78.8 ml/min; Magnesium 2.1 mg/dl (1.7-2.4); Potassium 3.6 mmol/L (3.5-5.1)
--- NOTE | 2022-06-23 07:10 | Magnetic Resonance Report ---
MR brain wo/w con HISTORY: 82 years-old Male stroke like symptoms acute strokelike symptoms COMPARISON: Head CT 06/22/2022 TECHNIQUE: Multiplanar multisequence MRI of the brain was obtained both with and without the use of 8 cc Gadavist FINDINGS: Gullet Slitter localizer images demonstrate no gross extracranial abnormality. Mildly motion degraded exam. Th ere is no restricted diffusion to suggest acute or subacute infarct. Midline structures appear unrema rkable. Degenerative changes of the cervical spine results in at least mild central canal stenosis at C3-C4. 4 mm pineal gland cyst. No acute intracranial hemorrhage, shift, abnormal extra axial collection, hydrocephalus or intracrani al mass. Involutional changes. T2/FLAIR hyperintense foci identified. No abnormal enhancement. The study is motion degraded. No path ologic blooming artifact on the T2 star series. Cerebral venous sinuses and major arterial flow voids appear patent. Prior bilateral lens repair. Skull and soft tissues are unremarkable. Polypoid mucosa l thickening of the paranasal sinuses. Mastoid air cells are clear. IMPRESSION: 1. No acute intracranial abnormality. No acute or subacute infarct. 2. Involutional changes with mild to moderate chronic microvascular ischemic disease. ACT 112: Negative or not required by law. The above report was generated using voice recognition software. It may contain grammatical, syntax o r spelling errors. Electronically signed by: Ryan Rainey M.D. 06/23/2022 7:07 AM
[2022-06-23 07:47] LABS: Estimated Average Glucose 120 mg/dl; Hemoglobin A1C 5.8 % (4.5-5.6)
[2022-06-23] MEDS: APIXABAN 5 MG TABLET PO SCH (07:48)
[2022-06-23] MEDS: SIMETHICONE 80 MG CHEW PO SCH (07:53)
--- NOTE | 2022-06-23 08:16 | Electrocardiogram Report ---
Test Reason : Blood Pressure : / mmHG Vent. Rate : 079 BPM Atrial Rate : 079 BPM P-R Int : 188 ms QRS Dur : 088 ms QT Int : 396 ms P-R-T Axes : 057 001 088 degrees QTc Int : 454 ms Poor data quality, interpretation may be adversely affected Normal sinus rhythm Normal ECG No previous ECGs available Confirmed by Fredrick Hsu ([id number]) on 06/23/2022 8:15:43 AM Referred By: REFERRED SELF Confirmed By:Fredrick Hsu
[2022-06-23] MEDS ORDERED: ENALAPRIL MALEATE 10 MG TAB PO SCH (09:00)
[2022-06-23] MEDS ORDERED: CYANOCOBALAMIN (B-12) 500 MCG TABLET PO SCH (09:00)
[2022-06-23] MEDS ORDERED: amLODIPine BESYLATE 5 MG TAB PO SCH (09:00)
[2022-06-23] MEDS ORDERED: TORSEMIDE 10 MG TAB PO SCH (09:00)
[2022-06-23] MEDS ORDERED: NON-FORMULARY MEDICATION (Coq10 (Ubiquinol) 200 mg Capsule) PO SCH (09:00)
[2022-06-23] MEDS ORDERED: ACETAMINOPHEN 325 MG TAB PO SCH (09:00)
[2022-06-23] MEDS ORDERED: NON-FORMULARY MEDICATION (Saw Palmetto 450 mg Capsule) PO SCH (09:00)
[2022-06-23] MEDS ORDERED: ADVANCED PROBIOTIC 1250 MG CAPSULE PO SCH (09:00)
--- NOTE | 2022-06-23 13:36 | Neurology Consultation ---
Date of Consultation June 23, 2022 Assessment & Plan (1) Stroke-like symptoms: Impression: The patient had an episode of dizziness, slurred speech, and impaired fine motor skills in right hand, which resolved in the emergency department. He was not a candidate for thrombolytic treatment. He has been symptom-free since admission. Stroke work-up has been unremarkable including brain MRI. Patient has multiple stroke risk factors. He has been on Eliquis for reported paroxysmal atrial fibrillation. (We do not have medical documents regarding indication of anticoagulation.) The patient reports having similar event in 2020, which was treated with thrombolytic treatment. Has been having episodic dizzy feeling and received physical therapy/vestibular rehabilitation. The cause of recent event is uncertain. However, based on the patient's multiple stroke risk factors, TIA is in differential. Plan/recommendations: Patient will continue using Eliquis 5 mg twice a day based on reported history of paroxysmal atrial fibrillation. There is no neurological indication adding antiplatelet treatment. The patient will stay on Lipitor as before. Goal LDL level is lower than 70. Diet modification is recommended. Management of hypertension. Goal blood pressure is below 130/80. The patient is informed about stroke symptoms. In case of having similar or different neurological symptoms, he will go to emergency department without waiting. He can be discharged home on home medications. Follow-up with neurology clinic in a month. I will inform [facility] neurology clinic regarding follow-up visit. (2) HLD (hyperlipidemia): As seen above. (3) HTN (hypertension): As seen above. (4) CHF (congestive heart failure): Plan Thank you for the consultation. History of Present Illness Reason for Consultation: Stroke-like symptoms. Requesting Physician: Kameron Villavicencio MD Attending Physician: Kameron Villavicencio MD History of Present Illness The patient is a 82-year-old right-handed gentleman, who was brought to emergency department yesterday, after the patient had an episode of dizziness, slurred speech, some questionable decrease of right hand fine motor skills. He was visiting his daughter, and they were out in restaurant. He was feeling some pressure in his head for last 2 days, and while they were in a restaurant, he was feeling somewhat lightheaded. He managed to finish his meal, when he returned back to home, other family members noticed that he was having some slurring of speech. He also noticed short lasting, decreased fine motor skills of right hand, while he was holding a fork. His daughter checked his blood pressure, which was normal. Heart rate was not checked. EMS was activated and the patient was brought to emergency department. They did not notice an sensorimotor deficit and his dizziness was improving as well as slurring of speech. He was not considered a candidate for thrombolytic treatment because of being on Eliquis and improving neurological symptoms. Telemetry monitoring has been showing sinus rhythm since admission. Head CT, CT angiogram of head and neck were unremarkable. Since admission, the patient has been symptom-free. Brain MRI did not show acute intracranial pathology including cerebrovascular accident. Echocardiogram did not show interval change from prior study and did not show any evidence of intracardiac embolic source. The patient has been on Eliquis, probably for paroxysmal atrial fibrillation according to family. We do not have documentation regarding indication of Eliquis. The patient has been compliant on treatment. He denies missing any dosages of Eliquis. He has been treated for obstructive sleep apnea and uses CPAP as recommended. His blood pressure control has been well. LDL level was slightly higher than target range. He has been on high-dose Lipitor. He reports having another similar episodes in February 2021. Additionally, he was having more dizziness, speech disturbance, and facial numbness then, and received thrombolytic treatment. Since then, he has been evaluated for intermittent, dizzy feeling. Vestibular dysfunction was suspected. The patient received some physical therapy/vestibular rehabilitation with improvement of symptoms. The patient denies experiencing vertiginous symptoms but dizziness/lightheadedness. I have reviewed the patient's chart including imaging studies and visualized them personally. I have discussed the case with the patient and family and I have answered their questions in detail. Allergies Allergy/AdvReac Type Severity Reaction Status Date / Time No Known Allergies Allergy Unverified 06/22/22 17:12 Home Medications Medication Instructions Recorded Confirmed Type Lactobacillus acidophilus 10 10,000 mmu cells PO QAM 06/22/22 06/22/22 History billion cell capsule (Probiotic) acetaminophen 325 mg tablet 650 mg PO QAM 06/22/22 06/22/22 History (Tylenol) albuterol sulfate 90 mcg/actuation 2 puff inhalation QID PRN 06/22/22 06/22/22 History aerosol inhaler (Ventolin HFA) Shortness Of Breath Or Wheezing amlodipine 2.5 mg tablet 2.5 mg PO QAM 06/22/22 06/22/22 History apixaban 5 mg tablet (Eliquis) 5 mg PO BID 06/22/22 06/22/22 History ascorbic acid (vitamin C) 1,000 mg 1 g PO QPM 06/22/22 06/22/22 History tablet (Vitamin C) atorvastatin 80 mg tablet 80 mg PO HS 06/22/22 06/22/22 History coQ10 (ubiquinol) 200 mg capsule 200 mg PO QAM 06/22/22 06/22/22 History cyanocobalamin (vitamin B-12) 1,000 mcg PO DAILY 06/22/22 06/22/22 History 1,000 mcg tablet (Vitamin B-12) diphenhydramine 25 1 tab PO HS PRN Sleep 06/22/22 06/22/22 History mg-acetaminophen 500 mg tablet (Tylenol PM Extra Strength) doxazosin 4 mg tablet 4 mg PO HS 06/22/22 06/22/22 History finasteride 5 mg tablet 5 mg PO QPM 06/22/22 06/22/22 History loratadine 10 mg tablet 10 mg PO HS 06/22/22 06/22/22 History potassium chloride 10 mEq 10 meq PO QPM 06/22/22 06/22/22 History capsule,extended release quinapril 40 mg tablet 40 mg PO QAM 06/22/22 06/22/22 History saw palmetto 450 mg capsule 450 mg PO QAM 06/22/22 06/22/22 History simethicone 80 mg chewable tablet 80 mg PO AMPM 06/22/22 06/22/22 History (Gas Relief (simethicone)) torsemide 10 mg tablet 10 mg PO QAM 06/22/22 06/22/22 History Patient History Medical History Asthma CHF (congestive heart failure) HLD (hyperlipidemia) HTN (hypertension) KATY (obstructive sleep apnea) TIA (transient ischemic attack) Surgical History History of cholecystectomy Family History Grandfather (Maternal) Hypertension Diabetes Mother Hypertension Diabetes Colorectal cancer Stroke Father Hypertension Stroke Social History Smoking Status: Never smoker Hx Alcohol Use: No Hx Substance Use: No Preferred Language: Croatian 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 HENT: Normal exam with inspection. CV: Hearth rhythm is regular. Neck: Supple, no carotid bruits. Lungs: Non-labored and comfortable breathing. Abdomen: Soft, non-tender, non-distended. Skin: No rash or ecchymosis. Extremities: No edema or cyanosis NEUROLOGICAL EXAMINATION: Mental Status: Alert and oriented to place, person and time. Cranial Nerves: II-XII are intact. No nystagmus. Funduscopy: Normal looking optic discs. Motor: 5/5 in all extremities without asymmetry. Tone: Normal without spasticity or rigidity. Sensory: Intact to all sensory modalities. Coordination: No dysmetria with FTN testing. Speech: Fluent. Comprehension is intact. DTRs: 2+ all. No Babinsky Gait: Normal. No ataxia or abnormal walking pattern. Musculoskeletal: Normal muscle bulk, no atrophy. Results & Data ([facility]) Vital Signs (Past 12 Hours) Vital Signs Temp Pulse Pulse Resp BP Pulse Ox O2 Del Method 06/23/22 11:10 36.5 C 70 18 115/70 96 Room Air 06/23/22 08:00 Room Air, CPAP 06/23/22 08:06 36.4 C L 75 18 163/86 H 96 Room Air 06/23/22 07:22 63 06/23/22 03:01 36.4 C L 67 18 134/71 93 Room Air Laboratory Results Laboratory Results - last 24 hr 06/22/22 06/22/22 06/22/22 16:24 16:27 16:27 WBC 6.59 RBC 3.83 L Hgb 11.8 L POC Hgb Hct 34.1 L POC Hct MCV 89.0 MCH 30.8 MCHC 34.6 RDW Std Deviation 52.3 H RDW Coeff of Teddy 16.0 H Plt Count 180 MPV 10.6 Immature Gran % (Auto) Neut % (Auto) Lymph % (Auto) [place] % (Auto) Eos % (Auto) Baso % (Auto) Neut # (Auto) Lymph # (Auto) [place] # (Auto) Eos # (Auto) Baso # (Auto) Immature Gran # (Auto) PT 11.4 INR 1.1 APTT 27.6 PTT Ratio 1.0 POC Sodium Sodium POC Potassium Potassium POC Chloride Chloride Carbon Dioxide POC Total CO2 Anion Gap POC Anion Gap POC BUN BUN Creatinine POC Creatinine Est Cr Clr Drug Dosing Est GFR ( Amer) Est GFR (Non-Af Amer) BUN/Creatinine Ratio Glucose POC Glucose 115 H POC Glucose (other) Estimat Average Glucose Hemoglobin A1c Calcium POC Ioniz Calcium Zina Magnesium Total Bilirubin AST ALT Alkaline Phosphatase Troponin I High Sens B-Natriuretic Peptide Total Protein Albumin Globulin Albumin/Globulin Ratio Triglycerides Cholesterol LDL Cholesterol, Calc VLDL Cholesterol, Calc HDL Cholesterol Cholesterol/HDL Ratio SARS-CoV-2, RNA, NAAT 06/22/22 06/22/22 06/22/22 16:27 16:27 16:29 WBC RBC Hgb POC Hgb 10.9 L Hct POC Hct 32 L MCV MCH MCHC RDW Std Deviation RDW Coeff of Teddy Plt Count MPV Immature Gran % (Auto) Neut % (Auto) Lymph % (Auto) [place] % (Auto) Eos % (Auto) Baso % (Auto) Neut # (Auto) Lymph # (Auto) [place] # (Auto) Eos # (Auto) Baso # (Auto) Immature Gran # (Auto) PT INR APTT PTT Ratio POC Sodium 141 Sodium 139 POC Potassium 3.5 Potassium 3.6 POC Chloride 104 Chloride 107 Carbon Dioxide 27 POC Total CO2 24 Anion Gap 5 POC Anion Gap 16.0 POC BUN 18 BUN 17 Creatinine 0.95 POC Creatinine 0.9 Est Cr Clr Drug Dosing Not Reportable Est GFR ( Amer) 86.7 Est GFR (Non-Af Amer) 74.8 BUN/Creatinine Ratio 17.9 Glucose 108 H POC Glucose POC Glucose (other) 109 H Estimat Average Glucose Hemoglobin A1c Calcium 8.3 L POC Ioniz Calcium Zina 1.11 L Magnesium 2.1 Total Bilirubin 0.5 AST 23 ALT 28 Alkaline Phosphatase 78 Troponin I High Sens 4.0 B-Natriuretic Peptide Total Protein 5.7 L Albumin 3.8 Globulin 1.9 L Albumin/Globulin Ratio 2.0 Triglycerides Cholesterol LDL Cholesterol, Calc VLDL Cholesterol, Calc HDL Cholesterol Cholesterol/HDL Ratio SARS-CoV-2, RNA, NAAT 06/22/22 06/22/22 06/22/22 17:21 20:28 21:20 WBC RBC Hgb POC Hgb Hct POC Hct MCV MCH MCHC RDW Std Deviation RDW Coeff of Teddy Plt Count MPV Immature Gran % (Auto) Neut % (Auto) Lymph % (Auto) [place] % (Auto) Eos % (Auto) Baso % (Auto) Neut # (Auto) Lymph # (Auto) [place] # (Auto) Eos # (Auto) Baso # (Auto) Immature Gran # (Auto) PT INR APTT PTT Ratio POC Sodium Sodium POC Potassium Potassium POC Chloride Chloride Carbon Dioxide POC Total CO2 Anion Gap POC Anion Gap POC BUN BUN Creatinine POC Creatinine Est Cr Clr Drug Dosing Est GFR ( Amer) Est GFR (Non-Af Amer) BUN/Creatinine Ratio Glucose POC Glucose POC Glucose (other) Estimat Average Glucose Hemoglobin A1c Calcium POC Ioniz Calcium Zina Magnesium Total Bilirubin AST ALT Alkaline Phosphatase Troponin I High Sens B-Natriuretic Peptide 81 Total Protein Albumin Globulin Albumin/Globulin Ratio Triglycerides 120 Cholesterol 209 H LDL Cholesterol, Calc 102 VLDL Cholesterol, Calc 24 HDL Cholesterol 83 Cholesterol/HDL Ratio 2.5 SARS-CoV-2, RNA, NAAT NEGATIVE 06/22/22 06/23/22 06/23/22 21:20 02:00 02:00 WBC 8.27 RBC 3.85 L Hgb 11.8 L POC Hgb Hct 34.1 L POC Hct MCV 88.6 MCH 30.6 MCHC 34.6 RDW Std Deviation 52.7 H RDW Coeff of Teddy 16.2 H Plt Count 175 MPV 10.6 Immature Gran % (Auto) 0.2 Neut % (Auto) 65.9 Lymph % (Auto) 21.6 [place] % (Auto) 8.3 Eos % (Auto) 3.0 Baso % (Auto) 1.0 Neut # (Auto) 5.44 Lymph # (Auto) 1.79 [place] # (Auto) 0.69 Eos # (Auto) 0.25 Baso # (Auto) 0.08 Immature Gran # (Auto) 0.02 PT INR APTT PTT Ratio POC Sodium Sodium POC Potassium Potassium POC Chloride Chloride Carbon Dioxide POC Total CO2 Anion Gap POC Anion Gap POC BUN BUN Creatinine POC Creatinine Est Cr Clr Drug Dosing Est GFR ( Amer) Est GFR (Non-Af Amer) BUN/Creatinine Ratio Glucose POC Glucose POC Glucose (other) Estimat Average Glucose Hemoglobin A1c Calcium POC Ioniz Calcium Zina Magnesium Total Bilirubin AST ALT Alkaline Phosphatase Troponin I High Sens 5.6 5.3 B-Natriuretic Peptide Total Protein Albumin Globulin Albumin/Globulin Ratio Triglycerides Cholesterol LDL Cholesterol, Calc VLDL Cholesterol, Calc HDL Cholesterol Cholesterol/HDL Ratio SARS-CoV-2, RNA, NAAT 06/23/22 06/23/22 06/23/22 02:00 02:00 09:42 WBC RBC Hgb POC Hgb Hct POC Hct MCV MCH MCHC RDW Std Deviation RDW Coeff of Teddy Plt Count MPV Immature Gran % (Auto) Neut % (Auto) Lymph % (Auto) [place] % (Auto) Eos % (Auto) Baso % (Auto) Neut # (Auto) Lymph # (Auto) [place] # (Auto) Eos # (Auto) Baso # (Auto) Immature Gran # (Auto) PT INR APTT PTT Ratio POC Sodium Sodium 141 POC Potassium Potassium 3.6 POC Chloride Chloride 110 H Carbon Dioxide 28 POC Total CO2 Anion Gap 3 POC Anion Gap POC BUN BUN 17 Creatinine 0.91 POC Creatinine Est Cr Clr Drug Dosing 63.2 Est GFR ( Amer) 91.3 Est GFR (Non-Af Amer) 78.8 BUN/Creatinine Ratio 18.7 Glucose 120 H POC Glucose POC Glucose (other) Estimat Average Glucose 120 Hemoglobin A1c 5.8 H Calcium 8.4 L POC Ioniz Calcium Zina Magnesium 2.1 Total Bilirubin AST ALT Alkaline Phosphatase Troponin I High Sens 6.0 B-Natriuretic Peptide Total Protein Albumin Globulin Albumin/Globulin Ratio Triglycerides Cholesterol LDL Cholesterol, Calc VLDL Cholesterol, Calc HDL Cholesterol Cholesterol/HDL Ratio SARS-CoV-2, RNA, NAAT Diagnostic Findings Head CT 06/22/22 16:08 CT angio neck with con, CT angio head w con, CT head/brain wo con CLINICAL HISTORY: dizzy, aphasia TECHNIQUE: Automated Data Collection CT angiography of the head and neck was performed following intravenous administration of iodinated contrast. Coronal and sagittal MIPS were obtained from the axial data set and were submitted for review. Automated dose lowering techniques and/or adjustment according to patient size were utilized for this examination. All measurements were calculated based on NASCET criteria. CT DOSE: 627.54 mGy.cm (accession [id number]), 691.05 mGy.cm (accession [id number]) Comparison: None available at the time of this dictation. FINDINGS: CT head: There is no acute intracranial hemorrhage or evidence of acute territorial infarction. No shift of the midline structures, mass effect, or extra-axial abnormalities are shown. 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 Lungs and soft tissues are unremarkable. CTA Neck: The left common carotid artery shares common origin with the innominate artery. There is no significant atherosclerotic plaque in the aortic arch or the origins of the innominate, left common carotid, and left subclavian arteries. The common carotid, external carotid, cervical segments of the internal carotid arteries, and the cervical segments of the vertebral arteries are patent without hemodynamically significant stenosis. The vertebral arteries are codominant. CTA Head: The anterior and posterior cerebral circulations are patent. No hemodynamically significant stenosis, aneurysm, dissection, or arteriovenous malformation is shown. Atherosclerotic disease is noted. IMPRESSION: 1. No acute intracranial hemorrhage, evidence of acute territorial infarction, or other acute intracranial disease process. 2. No occlusion, hemodynamically significant stenosis, or dissection in the major cervical arteries. 3. No occlusion, hemodynamically significant stenosis, aneurysm, dissection, or arteriovenous malformation in the major intracranial arteries. Assessment of stenosis of the internal carotid arteries is based on NASCET criteria. ACT 112: Negative or not required by law. Electronically signed by: Derrick Minor M.D. 06/22/2022 4:52 PM Head CTA 06/22/22 16:14 CT angio neck with con, CT angio head w con, CT head/brain wo con CLINICAL HISTORY: dizzy, aphasia TECHNIQUE: Automated Data Collection CT angiography of the head and neck was performed following intravenous administration of iodinated contrast. Coronal and sagittal MIPS were obtained from the axial data set and were submitted for review. Automated dose lowering techniques and/or adjustment according to patient size were utilized for this examination. All measurements were calculated based on NASCET criteria. CT DOSE: 627.54 mGy.cm (accession [id number]), 691.05 mGy.cm (accession [id number]) Comparison: None available at the time of this dictation. FINDINGS: CT head: There is no acute intracranial hemorrhage or evidence of acute territorial infarction. No shift of the midline structures, mass effect, or extra-axial abnormalities are shown. 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 Lungs and soft tissues are unremarkable. CTA Neck: The left common carotid artery shares common origin with the innominate artery. There is no significant atherosclerotic plaque in the aortic arch or the origins of the innominate, left common carotid, and left subclavian arteries. The common carotid, external carotid, cervical segments of the internal carotid arteries, and the cervical segments of the vertebral arteries are patent without hemodynamically significant stenosis. The vertebral arteries are codominant. CTA Head: The anterior and posterior cerebral circulations are patent. No hemodynamically significant stenosis, aneurysm, dissection, or arteriovenous malformation is shown. Atherosclerotic disease is noted. IMPRESSION: 1. No acute intracranial hemorrhage, evidence of acute territorial infarction, or other acute intracranial disease process. 2. No occlusion, hemodynamically significant stenosis, or dissection in the major cervical arteries. 3. No occlusion, hemodynamically significant stenosis, aneurysm, dissection, or arteriovenous malformation in the major intracranial arteries. Assessment of stenosis of the internal carotid arteries is based on NASCET criteria. ACT 112: Negative or not required by law. Electronically signed by: Derrick Minor M.D. 06/22/2022 4:52 PM Neck CTA 06/22/22 16:14 CT angio neck with con, CT angio head w con, CT head/brain wo con CLINICAL HISTORY: dizzy, aphasia TECHNIQUE: Automated Data Collection CT angiography of the head and neck was performed following intravenous administration of iodinated contrast. Coronal and sagittal MIPS were obtained from the axial data set and were submitted for review. Automated dose lowering techniques and/or adjustment according to patient size were utilized for this examination. All measurements were calculated based on NASCET criteria. CT DOSE: 627.54 mGy.cm (accession [id number]), 691.05 mGy.cm (accession [id number]) Comparison: None available at the time of this dictation. FINDINGS: CT head: There is no acute intracranial hemorrhage or evidence of acute territorial infarction. No shift of the midline structures, mass effect, or extra-axial abnormalities are shown. 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 Lungs and soft tissues are unremarkable. CTA Neck: The left common carotid artery shares common origin with the innominate artery. There is no significant atherosclerotic plaque in the aortic arch or the origins of the innominate, left common carotid, and left subclavian arteries. The common carotid, external carotid, cervical segments of the internal carotid arteries, and the cervical segments of the vertebral arteries are patent without hemodynamically significant stenosis. The vertebral arteries are codominant. CTA Head: The anterior and posterior cerebral circulations are patent. No hemodynamically significant stenosis, aneurysm, dissection, or arteriovenous malformation is shown. Atherosclerotic disease is noted. IMPRESSION: 1. No acute intracranial hemorrhage, evidence of acute territorial infarction, or other acute intracranial disease process. 2. No occlusion, hemodynamically significant stenosis, or dissection in the major cervical arteries. 3. No occlusion, hemodynamically significant stenosis, aneurysm, dissection, or arteriovenous malformation in the major intracranial arteries. Assessment of stenosis of the internal carotid arteries is based on NASCET criteria. ACT 112: Negative or not required by law. Electronically signed by: Derrick Minor M.D. 06/22/2022 4:52 PM Chest X-Ray 06/22/22 17:08 XR chest 1V portable CLINICAL HISTORY: dizzy TECHNIQUE: Single frontal radiograph of the chest was obtained. Comparison: None available at the time of this dictation. FINDINGS: No lines and tubes are seen. Cardiac silhouette is top normal in size. The lungs are clear. No evidence of pleural effusion or pneumothorax. IMPRESSION: No acute chest disease. ACT 112: Negative or not required by law. Electronically signed by: Derrick Minor M.D. 06/22/2022 5:25 PM Brain MRI 06/22/22 18:55 MR brain wo/w con HISTORY: 82 years-old Male stroke like symptoms acute strokelike symptoms COMPARISON: Head CT 06/22/2022 TECHNIQUE: Multiplanar multisequence MRI of the brain was obtained both with and without the use of 8 cc Gadavist FINDINGS: Burglar Alarm Inspector localizer images demonstrate no gross extracranial abnormality. Mildly motion degraded exam. There is no restricted diffusion to suggest acute or subacute infarct. Midline structures appear unremarkable. Degenerative changes of the cervical spine results in at least mild central canal stenosis at C3-C4. 4 mm pineal gland cyst. No acute intracranial hemorrhage, shift, abnormal extra axial collection, hydrocephalus or intracranial mass. Involutional changes. T2/FLAIR hyperintense foci identified. No abnormal enhancement. The study is motion degraded. No pathologic blooming artifact on the T2 star series. Cerebral venous sinuses and major arterial flow voids appear patent. Prior bilateral lens repair. Skull and soft tissues are unremarkable. Polypoid mucosal thickening of the paranasal sinuses. Mastoid air cells are clear. IMPRESSION: 1. No acute intracranial abnormality. No acute or subacute infarct. 2. Involutional changes with mild to moderate chronic microvascular ischemic disease. ACT 112: Negative or not required by law. The above report was generated using voice recognition software. It may contain grammatical, syntax or spelling errors. Electronically signed by: Ryan Rainey M.D. 06/23/2022 7:07 AM
[2022-06-23] MEDS ORDERED: STROKE PATIENT DISCHARGE STA (13:49)
--- NOTE | 2022-06-23 15:08 | Discharge Summary ---
Date of Service June 23, 2022 Admission HPI Per Admitting Provider Javi is an 82-year-old male that presented to the hospital today with his Paula and his son Rodrigo after experiencing dizziness, dysarthria, difficulty with the right hand fine motor skills at [facility]. He was in [facility] at [facility] this morning when his symptoms began just before 1 PM. He is visiting his son from the [place] area. His [id number] is a nurse here at [facility] and she was able to take his blood pressure which was normal at the time. He reports that he was dizzy getting out of his car and while at lunch he picked up to [place] at 1 time and had a hard time putting down one of the [place]. He felt that he had some slurred words but did not report aphasia. A head CT was obtained and negative and his symptoms have seemed to resolve since presenting to the ED. The patient has a history of TIAs and received TN kinase last year and was put on Eliquis for chronic management thereafter. Additional past medical history includes atrial fibrillation, hyperlipidemia, hypertension, KATY (CPAP at home) CHF. He primarily is followed in the [facility] system with Dr. Rice. 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 Mr. Freire denies current dizziness, chest pain, palpitations, visual changes, shortness of breath, cough, nausea, vomiting, diarrhea, recent falls or trauma, or aphasia. On examination, the patient is awake alert oriented x4 and is able to hold a meaningful conversation with myself, his , and his son. He is answering all questions appropriately and appears to be back to baseline from a speech perspective per himself and his family. The patient does report a trace headache and generalized weakness from the events that transpired today. Lengthy conversation held with patient and his family and they were receptive to further diagnostic imaging including an MRI and an echocardiogram. Patient will be started on standard dosing antiplatelet therapy and will await further instruction from neurology. Patient will be admitted to the [facility] service for further evaluation and management. Please see A/P for further details. Admission Exam Per Admitting Provider Neuro: AAOx4, PERRLA, no aphagia, memory changes, CNII-XII grossly intact (-) aphagia HEENT: head normocephalic, moist mucus membranes CV: S1/S2, (-) M/G/R, (-) edema, cap refill < 3 seconds Resp: Lungs CTA in all edwards. On RA GI: Abdomen S/NT/ND, Ax4 bowel sounds, (-) CVA tenderness Musculoskeletal: 5/5 B/L UE strength, 5/5 B/L LE strength. No gait disturbance Skin: (-) rashes , (-) erythema. Psych: euthymic mood Principal Diagnosis Strokelike symptoms Discharge Exam Constitutional: WD/WN, vitals as above, NAD, sitting up in bed, pleasant, conversing easily Respiratory: normal respiratory effort, lungs clear to auscultation, no wheeze, rales, rhonchi. Normal insp/exp effort, no accessory muscle use Cardiovascular: RRR, no murmur, no edema Vessels: no JVD or carotid bruit Chest: normal inspection of chest Abdomen: normal bowel sounds, soft, nontender, no hepatosplenomegaly Musculoskeletal: no cyanosis or clubbing, extremities motor strength 5/5 Skin: no rashes, warm and dry normal turgor Neurologic: PERRL, EOMI, accommodation nl, no face palsy, no dysarthria CN's II- XI intact bilaterally and moves all extremities Psychiatric: A+Ox3, euthymic affect Lymphatic: no cervical or axillary lymphadenopathy : deferred Discharge Data Allergies Allergy/AdvReac Type Severity Reaction Status Date / Time No Known Allergies Allergy Unverified 06/22/22 17:12 Consultations 06/22/22 18:39 ED Decision to Admit Stat 06/22/22 21:00 Consult Neurology Routine Ordered Studies 06/22/22 16:08 CT head/brain wo con Stat 06/22/22 16:14 CT angio head w con Stat CT angio neck with con Stat 06/22/22 18:55 MRI Brain [MR brain wo/w con] Stat Hospital Course (1) TIA (transient ischemic attack): (2) HTN (hypertension): (3) HLD (hyperlipidemia): (4) CHF (congestive heart failure): (5) Asthma: (6) KATY (obstructive sleep apnea): Plan 82-year-old M with past medical history of A. fib on Eliquis, CHF, hyperlipidemia presented to the hospital with dizziness, dysarthria, difficulty with the right hand fine motor skills. He reports some slurred words but did not report aphasia. He symptoms had resolved on presentation to the ED. CT head without contrast did not show any acute finding. CTA head and neck were negative for any large vessel occlusion. MRI brain did not show any acute stroke. Echo did not reveal any thrombus or intra-atrial communication. High- sensitivity sensitive troponin was negative. Telemetry showed normal sinus rhythm; no arrhythmia. Neurology consultation was done; no changes done to his medication. Patient was discharged home with instruction to follow-up with his primary care doctor. Total Time Total Time Spent Total Time Spent (In Minutes): 35 Total Time Includes: Examination of the Patient, Discharge Planning, Medication Reconciliation, Communication With Other Providers and Other Discharge Plan Discharge Items Patient Disposition: Home - Self-Care Reason For Visit: TIA Discharge Diagnosis: Dizziness CVA rule out Activity: Resume your previous activity Non-emergency contact: Primary Care Provider Call non-emergency contact if: you have any medication questions and your symptoms worsen Follow-up/Referrals: Sandra Rice [Other] - 06/26/22 9:00 am (Sandra Rice, DO [address] [address] ) Diet: Regular Addtl Attending Provider Instructions: You are admitted to the hospital for concern of stroke. MRI brain did not show any acute stroke No medication changes have been made. Please follow-up with her primary care doctor. Pending Studies at Discharge: No Stand-Alone Forms: [email or web address], Smoking Cessation Medications and DC Order Prescriptions: Continued ascorbic acid (vitamin C) [Vitamin C] 1,000 mg Tablet 1 g PO QPM Rx Instructions: take with supper amlodipine 2.5 mg Tablet 2.5 mg PO QAM quinapril 40 mg Tablet 40 mg PO QAM finasteride 5 mg Tablet 5 mg PO QPM Rx Instructions: take with supper Eliquis 5 mg Tablet 5 mg PO BID atorvastatin 80 mg Tablet 80 mg PO HS potassium chloride 10 mEq Capsule, Extended Release 10 meq PO QPM Rx Instructions: take with supper cyanocobalamin (vitamin B-12) [Vitamin B-12] 1,000 mcg Tablet 1,000 mcg PO DAILY doxazosin 4 mg Tablet 4 mg PO HS loratadine 10 mg Tablet 10 mg PO HS simethicone [Gas Relief (simethicone)] 80 mg Tablet,Chewable 80 mg PO AMPM Rx Instructions: take with breakfast and supper coQ10 (ubiquinol) 200 mg Capsule 200 mg PO QAM Probiotic 10 billion cell Capsule 10,000 mmu cells PO QAM torsemide 10 mg Tablet 10 mg PO QAM albuterol sulfate [Ventolin HFA] 90 mcg/actuation Hfa Aerosol Inhaler 2 puff INHALATION QID PRN (Reason: Shortness Of Breath Or Wheezing) saw palmetto 450 mg Capsule 450 mg PO QAM acetaminophen [Tylenol] 325 mg Tablet 650 mg PO QAM diphenhydramine-acetaminophen [Tylenol PM Extra Strength] 25-500 mg Tablet 1 tab PO HS PRN (Reason: Sleep) Discharge Orders: Discharge Order (Routine); Ordered 06/23/22 Ordered By: Kameron Wallace/Other Patient Handouts: The First Few Hours After a Stroke, What Is a TIA?, Risk Factors for Stroke Admission Data Admit Date/Time: 06/22/22 18:28 Attending Provider: Kameron Villavicencio Admit Provider: Mike Jeffries Primary Care Provider: PCP,NO Other Providers: Kameron Villavicencio ; Haroon Lorenzo Other Interventions: Discharge Summary Assessment (RN) Last Done: 06/23/22 14:04
--- NOTE | 2022-06-24 07:52 | Communication Note ---
Date of Service: June 23, 2022 Code 44 attestation: 82 year old male was admitted with Stroke like symptoms and was appropriately evaluated and managed by the neurologist and the attending. By CMS guidelines, a determination that the admission or continued stay is not medically necessary has been made by a member of the UR committee and a physician for this hospital stay, therefore a Code 44 will be completed and the Inpatient admission will be changed to outpatient. Dr Sherry Astudillo Member UR Committee
== END 2022-06-23 15:26 | disposition home or self-care (01) ==
LOC: ED 16:01 → SUATTDRO 18:28 → INTOOBSV 18:28 → 2N 18:28